=== PATIENT | female | born 2000 | race Caucasian/White ===

== ENCOUNTER 2020-02-04 16:01 | Emergency (ER) | payer BC, SELFPAY ==
--- NOTE | 2020-02-04 16:09 | ED.GIBLEED ---
HPI - GI Bleed General Chief complaint: Unspecified Stated complaint: pos hemmaroids Source: patient and RN notes reviewed Mode of arrival: ambulatory Limitations: no limitations History of Present Illness HPI Narrative: 19-year-old female presents with concern for blood in her stool that started yesterday. Reports 2 episodes yesterday, and one episode today. Reports streaks of blood on the toilet paper and few drops in the toilet. Denies tarry or coffee-ground stools. Denies nausea, vomiting, diarrhea, constipation, straining. Denies history of hemorrhoids. complaint: blood on toilet paper Related Data Home Medications Medication Instructions Recorded Confirmed medroxyprogesterone [Depo-Provera] 150 mg IM [id number] 02/04/20 02/04/20 Allergies Allergy/AdvReac Type Severity Reaction Status Date / Time No Known Allergies Allergy Verified 02/04/20 16:23 Review of Systems Review of Systems: Narrative: CONSTITUTIONAL: Denies malaise, chills, sweats, or fever. CARDIOVASCULAR: Denies chest pain, palpitations, or syncope. RESPIRATORY: Denies dyspnea. GASTROINTESTINAL: Denies abdominal pain, nausea, vomiting, diarrhea,or mucous stools. Reports bloody stools GENITOURINARY: Denies dysuria or hematuria. MUSCULOSKELETAL: Denies myalgia. All systems reviewed & are unremarkable except as noted in HPI and below PMFSH Social History Social History Gender identity (if verbalized by the patient): Female Comments At time of signature, agree with nursing past medical, surgical, social and family history. There is no relevant family history pertinent to the presenting complaint Exam Narrative: Exam Narrative: GENERAL: Well-appearing, well-nourished, and in no acute distress. HEAD: Normocephalic. EYES: PERRLA, conjunctivae clear. NECK: Supple. No lymphadenopathy CHEST: Clear to auscultation. No respiratory distress. HEART: Regular rate and rhythm. No murmur heard. Normal peripheral pulses. ABDOMEN: Soft, nontender upon palpation, nondistended, normal active bowel sounds, no palpable or pulsatile masses, no guarding. Reports mild discomfort upon palpation to right lower quadrant, denies pain SKIN: Warm, dry, no rash. NEURO: Alert and oriented x3. PSYCH: Normal mood and affect GI: Rectal Exam: visual inspection normal, normal sphincter tone and heme positive stool Other: No internal or external hemorrhoids noted Course Course Emergency Course: Patient is aware of diagnosis, understands and agrees to treatment plan. Anticipatory guidance given. Patient agrees to follow-up as directed and is aware of reasons to seek care at the emergency department. Portions of this record may have been created with voice recognition software Vital Signs Vital signs: Vital Signs Temperature 99.0 F 02/04/20 16:22 Pulse Rate 80 02/04/20 16:22 Respiratory Rate 16 02/04/20 16:22 Blood Pressure 127/87 02/04/20 16:22 Pulse Oximetry 99 02/04/20 16:22 Temperature 99.0 F 02/04/20 16:22 Pulse Rate 80 02/04/20 16:22 Respiratory Rate 16 02/04/20 16:22 Blood Pressure 127/87 02/04/20 16:22 Pulse Oximetry 99 02/04/20 16:22 Reviewed. Patient has been instructed to follow up with her primary care provider within the next week regarding her elevated blood pressure today. MDM - GI Bleed MDM Narrative Medical decision making narrative: Exam findings show no acute concerns or changes; patient is non-toxic appearing and is in no distress. Patient is appropriate for outpatient treatment and follow-up. Differential Diagnosis Differential diagnosis: Likely hemorrhoids, Lower gastrointestinal hemorrhage, melena and anal fissure Critical Care Time Critical Care Time Critical Care Time: No Discharge Plan Discharge Clinical Impression: Heme positive stool Patient Disposition: Home, Self-Care Condition: Stable Instructions: Melena (ED) Additional Instructions: 1) Please follow-up with a primary care d
[2020-02-04 16:22] VITALS: BP 127/87; PULSE 80; RESP 16; TEMP 37.2; O2SAT 99
== END 2020-02-04 16:42 | disposition home or self-care (01) ==
PROVIDERS: Emergency Provider Nurse Practitioner
DX: R19.5 Other fecal abnormalities (principal)
CPT/HCPCS: 99203; G0463

== ENCOUNTER 2020-03-17 13:23 | Outpatient (CLI) | payer BC, SELFPAY ==
[2020-03-17 14:19] LABS: Beta HCG Quantitative < 2.39 mIU/ML
== END 2020-03-17 13:24 | disposition home or self-care (01) ==
PROVIDERS: Visit Provider Obstetrics & Gynecology
DX: Z30.09 Encounter for other general counseling and advice on contraception (principal)
CPT/HCPCS: 36415; 84702

== ENCOUNTER 2023-04-12 11:30 | Outpatient (CLI) | payer BC, SELFPAY ==
[2023-04-12 13:28] LABS: HIV 1/2 Ab P24 Ag Result Negative (Negative)
[2023-04-12 13:33] LABS: Hepatitis B Surface Antigen Negative (Negative)
[2023-04-12 13:39] LABS: HAV RESULT Negative (Negative); Hepatitis B Core IgM Result Negative (Negative)
[2023-04-12 13:51] LABS: Hepatitis C Virus Antibody Negative (Negative)
[2023-04-12 15:14] LABS: Rapid Plasma Reagin Non-Reactive (NonReactive)
== END 2023-04-12 11:31 | disposition home or self-care (01) ==
LOC: ANHLAB 11:32
PROVIDERS: Visit Provider Student in an Organized Health Care Education/Training Program
DX: Z20.2 Contact with and (suspected) exposure to infections with a predominantly sexual mode of transmission (principal)
CPT/HCPCS: 36415; 80074; 86592; 86695; 86696; 86703; G0432